=== PATIENT | male | born 1995 | race Caucasian/White ===

== ENCOUNTER 2021-05-18 17:57 | Observation (INO) ==
[2021-05-18 19:55] LABS: Hematocrit (blood only) 42.3 % (42-52); Hemoglobin 15.2 g/dL (14.0-18.0); Mean Corpuscular Hgb Conc 35.9 g/dL (32-36); Mean Corpuscular Volume 80.7 fL (80-100); Mean Platelet Volume 10.8 fL (7.4-10.4); Platelet Count 167 K/uL (130-400); RDW Coefficient of Variation 12.2 % (11.5-14.5); RDW Standard Deviation 35.4 fL (36.4-46.3); Red Blood Count 5.24 M/uL (4.7-6.1); White Blood Count 5.24 K/uL (4.8-10.8)
[2021-05-18 20:21] LABS: Albumin Globulin Ratio 2.3 (0.9-2); BUN Creatinine Ratio 11.6 (10-20); Bilirubin,Total 0.7 mg/dl (0.2-1.0); Calcium 10.2 mg/dl (8.5-10.1); Creatinine Clr Calc Pharmacy 82.7 ml/min; Est GFR (African American) 105.3 ml/min; Est GFR (Non-African American) 90.8 ml/min; Globulin 2.2 gm/dl (2.5-4.0); Potassium 4.2 mmol/L (3.5-5.1); Total Protein 7.2 gm/dl (6.0-8.3)
[2021-05-18 20:31] LABS: Basophils # (manual) 0.14 K/uL (0-0.2); Basophils % (manual) 2.6 %; Eosinophils # (manual) 0.09 K/uL (0-0.5); Eosinophils % (manual) 1.7 %; Lymphocytes # (manual) 1.81 K/uL (1.2-3.4); Lymphocytes % (manual) 34.5 %; Monocytes # (manual) 0.31 K/uL (0.11-0.59); RBC Morphology Unremarkable; Reactive Lymphocytes % (manual) 36.2 %
[2021-05-18] MEDS ORDERED: OPTIRAY 320 100ml IV ONE (20:33)
--- NOTE | 2021-05-18 21:02 | CT Scan Report ---
ABDOMEN AND PELVIS CT WITH IV CONTRAST CT DOSE: 257.70 mGy.cm HISTORY: lower abd pain TECHNIQUE: Multiaxial CT images of the abdomen and pelvis were performed following the use of intrave nous contrast. A dose lowering technique was utilized adhering to the principles of ALARA. COMPARISON STUDY: None. FINDINGS: The lung bases are clear. No fractures within the visualized osseous structures. There is a small left paracentral focal disc protrusion at L5-S1 with moderate disc space narrowing at this lev el. The liver, gallbladder, pancreas, spleen, adrenal glands, and kidneys are unremarkable. No hydron ephrosis. The main portal vein is patent. No retroperitoneal lymphadenopathy. The bladder is unremark able. Mild thickening versus underdistention within the rectum. No evidence for bowel obstruction. Th e proximal appendix is normal in caliber. The mid to distal appendix is seen within the right lower q uadrant on images 288 through 324. This is slightly distended up to 7 mm and is fluid-filled. However , there is no definite periappendiceal fat stranding. IMPRESSION: 1. The mid to distal appendix is fluid-filled and slightly distended up to 7 mm. However, there is no definite periappendiceal fat stranding at this time. An early acute appendicitis is considered less likely but not entirely excluded. Surgical consultation recommended. Given the location of the distal appendix, a follow-up dedicated ultrasound of the appendix may be helpful for further evaluation. If the patient is experiencing right lower quadrant pain then a repeat abdomen and pelvis CT with intra venous and oral contrast can also be performed. 2. Mild thickening of the rectum versus underdistention. This could represent a low-grade proctitis. 3. No hydronephrosis. ACT 112: Negative or not required by law. Electronically signed by: Jus Harvey M.D. 05/18/2021 9:00 PM
[2021-05-18 22:09] LABS: Appearance Urine Clear (Clear); Bilirubin Urine Negative (Negative); Blood Urine Negative (Negative); Color Urine Yellow; Glucose Urine UA Negative (Negative); Ketones Urine Negative (Negative); Leukocyte Esterase Urine Negative (Negative); Nitrite Urine Negative (Negative); Protein Urine Negative (Negative); Urobilinogen Urine Negative (Negative); pH Urine 7.5 (4.5-7.5)
[2021-05-18 22:21] LABS: Specific Gravity Urine > 1.060 (1.000-1.030)
--- NOTE | 2021-05-18 22:27 | History & Physical Report ---
Date of Service May 18, 2021 Assessment & Plan (1) Abdominal pain: Plan: He is afebrile with normal vital signs. He has normal white blood cell count. He had equivocal CT scan with a slightly dilated appendix but no definite inflammation. His exam and presentation is equivocal as well. I do not believe he needs an urgent appendectomy. I am going admit him for observation and since he is thin order an ultrasound of the right lower quadrant for the morning. Also recheck his white blood cell count. We will reexamine him in the morning. If his symptoms persist or worsen his white cell count elevates or his ultrasound shows evidence of appendicitis we would have a low threshold for laparoscopic appendectomy tomorrow. History of Present Illness Primary Care Provider: NO PCP 25-year-old male with a 4-day history of rather vague abdominal pain. It started in his upper abdomen and linear in nature. He does have a history of different GI issues and he felt it was cramping versus acid reflux etc. Yesterday the pain became worse. He had a friend with similar presentation who ended up with appendicitis and therefore he brought himself to the emergency room. He did have a good appetite and ate today. He does have point specific tenderness now in the right lower quadrant. He states that he had a similar pain about 1 year ago Allergies Allergy/AdvReac Type Severity Reaction Status Date / Time No Known Allergies Allergy Unverified 05/18/21 21:40 Home Medications Medication Instructions Recorded Confirmed Type buprenorphine 8 mg-naloxone 2 mg 0.25 tab SUBLINGUAL DAILY 05/18/21 05/18/21 History sublingual tablet bupropion HCl 100 mg tablet,12 hr 100 mg PO BID 05/18/21 05/18/21 History sustained-release citalopram 10 mg tablet 10 mg PO QAM 05/18/21 05/18/21 History Past Med/Surg History Social History Smoking Status: Current every day smoker Tobacco Type: E-cigarettes / Vaping Preferred Language: Slovenian Feels Safe at Home: Yes Review of Systems 2 Review of Systems: All systems reviewed & are unremarkable except as noted in HPI & below Physical Exam Constitutional: WD/WN, vitals as above no acute distress and not ill appearing Eyes: PERRL, conjunctivae normal, anicteric sclerae EOM intact bilaterally ENMT: external ear and nose normal, oropharynx normal Ears: no hearing impairment Neck: trachea midline, no thyromegaly Respiratory: normal respiratory effort; no respiratory distress and does not use accessory muscles Cardiovascular: Rate/Rhythm: regular rate and regular rhythm Gastrointestinal (Abdomen): Soft. Positive right lower quadrant tenderness. Mild guarding. Negative heel strike. Skin: no rashes, warm and dry Psychiatric: Orientation: alert, oriented x 3 and cooperative Results & Data Results & Data ([facility]) Vital Signs (Past 12 Hours) Vital Signs Temp Pulse Resp BP Pulse Ox 05/18/21 22:10 55 L 12 129/84 98 05/18/21 18:15 36.9 C 83 16 132/84 100 PG Care Time/CCT Total # of Minutes Spent Total Time Spent with Patient: Total time spent is greater than 50% in coordination of care (as documented) at patient's floor/unit and/or counseling patient: Coding Level of Care Code INT OBSERVATION CARE 70M LVL 3 Diagnoses Abdominal pain R10.9
--- NOTE | 2021-05-18 22:44 | Emergency Department Note ---
Impression & Plan Abdominal pain, Abnormal abdominal CT scan, Serum calcium elevated ED Provider Note NAME: YUAN RAMON AGE: 25 SEX: M : 1995 ARRIVES VIA: Walk-In INFORMANT: Patient ED PROVIDER(S): Ruddy Mendenhall DO CHIEF COMPLAINT: abdominal pain HPI: Patient is a 25-year-old male who presents the ER for right lower quadrant abdominal pain. Symptoms started about 3 days ago and have been waxing and waning. They reoccurred this morning and have been constant. They are focal in the right lower quadrant. He denies any headache or fevers. No chest pain or shortness of breath. Has some nausea but no vomiting or diarrhea. No dysuria urgency or frequency. He notes he does not feel like he wants to eat. No other S exacerbating or remitting factors. Pain is dull and constant and about a 4 out of 10. ROS: See above HPI for pertinent positives & negatives. A total of 10 systems reviewed and were otherwise negative. PAST MEDICAL HISTORY:See Below PAST SURGICAL HISTORY:See Below FAMILY HISTORY:See Below SOCIAL HISTORY:See Below HOME MEDICATIONS:See Below ALLERGIES:See Below VITALS:See Below PHYSICAL EXAMINATION: GENERAL: Sitting up in bed, alert, well appearing, well nourished, no distress, non-toxic EYE EXAM: normal conjunctiva. OROPHARYNX: no exudate, no erythema, lips, buccal mucosa, and tongue normal and mucous membranes are moist NECK: supple, no nuchal rigidity, no adenopathy, non-tender LUNGS: Clear to auscultation. Normal chest wall mechanics HEART: no murmurs, S1 normal and S2 normal ABDOMEN: abdomen soft, tender palpation right lower quadrant, normo-active bowel sounds, no masses, no rebound or guarding. UPPER EXTREMITIES: upper extremities are grossly normal. LOWER EXTREMITIES: No pitting edema. NEURO EXAM: Normal sensorium, cranial nerves II-XII grossly intact, normal speech, no gross weakness of arms, no gross weakness of legs. MEDICAL DECISION MAKING: Patient is a 25-year-old male who presents ER for right lower quadrant abdominal pain. IV was established blood work was obtained. Labs show no significant leukocytosis or anemia. BMP with slightly elevated calcium. LFTs bilirubin lipase was unremarkable. UA was negative. Covid was ordered and pending. CT abdomen pelvis showed a large appendix but no stranding. Consult general surgery and patient was seen and evaluated and they will admit him for observation overnight to monitor and repeat abdominal checks. Triage Nursing notes reviewed. Limited review of prior medical records performed Vital Signs: reviewed and remarkable for no significant abnormalities Differential diagnosis: Differential diagnoses includes but is not limited to gastritis, peptic ulcer disease, GERD, gallbladder disease, pancreatitis, small bowel obstruction, acute coronary syndrome, pericarditis, ischemic bowel, irritable bowel disease, irritable bowel syndrome, appendicitis, diverticulitis, malignancy, hernia, urinary tract infection, torsion, [/ectopic (if female)], perforation, trauma, infectious. ER treatment provided: See below Diagnostics interpreted by me: ECG: none Cardiac Monitoring: An order was placed for continuous cardiac monitoring. The monitor shows a rate of 57 with sinus rhythm. Laboratory studies: As stated above and show below. Imaging studies: CT abdomen pelvis as described above Consultation(s): Discussed with general surgery who evaluated him bedside admit him for observation Procedures: none Critical Care: None Past Med/Surg History Social History Smoking Status: Current every day smoker Tobacco Type: E-cigarettes / Vaping Preferred Language: Romanian Feels Safe at Home: Yes Allergies Allergies Allergy/AdvReac Type Severity Reaction Status Date / Time No Known Allergies Allergy Unverified 05/18/21 21:40 Home Meds Home Medications Medication Instructions Recorded Confirmed buprenorphine 8 mg-naloxone 2 mg 0.25 tab SUBLINGUAL DAILY 05/18/21 05/18/21 sublingual tablet bupropion HCl 100 mg tablet,12 hr 100 mg PO BID 05/18/21 05/18/21 sustained-release citalopram 10 mg tablet 10 mg PO QAM 05/18/21 05/18/21 Results & Data (ED) Vital Signs Vital Signs - 24 hr 05/18/21 18:15 05/18/21 22:10 Temperature 36.9 C Temperature Source Temporal Artery Scan Pulse Rate 83 55 L Respiratory Rate 16 12 Blood Pressure 132/84 129/84 Blood Pressure Mean 100 99 Pulse Oximetry 100 98 Oxygen Delivery Method Room Air Room Air Sepsis Recent Fever Within 48 Hours No Sepsis New/Unexplained Change in Mental Status N/A Sepsis Action Taken by Nursing No Action Required Laboratory Data Result diagrams: 05/18/21 19:41 05/18/21 19:41 Lab Results 05/18/21 05/18/21 05/18/21 Range/Units 19:41 19:41 Unknown WBC 5.24 (4.8-10.8) K/uL RBC 5.24 (4.7-6.1) M/uL Hgb 15.2 (14.0-18.0) g/dL Hct 42.3 (42-52) % MCV 80.7 (80-100) fL MCH 29.0 (25-34) pg MCHC 35.9 (32-36) g/dL RDW Std Deviation 35.4 L (36.4-46.3) fL RDW Coeff of Monalisa 12.2 (11.5-14.5) % Plt Count 167 (130-400) K/uL MPV 10.8 H (7.4-10.4) fL Neutrophils % (Manual) 19.0 % Lymphocytes % (Manual) 34.5 % Reactive Lymphs % (Man) 36.2 % Monocytes % (Manual) 6.0 % Eosinophils % (Manual) 1.7 % Basophils % (Manual) 2.6 % Neutrophils # (Manual) 1.00 L (1.4-6.5) K/uL Total Absolute Neuts 1.00 L (1.4-6.5) K/uL Lymphocytes # (Manual) 1.81 (1.2-3.4) K/uL Reactive Lymphs # 1.90 K/uL Total Abs Lymphocytes 3.70 H (1.2-3.4) K/uL Monocytes # (Manual) 0.31 (0.11-0.59) K/uL Eosinophils # (Manual) 0.09 (0-0.5) K/uL Basophils # (Manual) 0.14 (0-0.2) K/uL RBC Morphology Unremarkable Sodium 140 (136-145) mmol/L Potassium 4.2 (3.5-5.1) mmol/L Chloride 104 (98-107) mmol/L Carbon Dioxide 26 (21-32) mmol/L Anion Gap 10 (3-11) BUN 13 (6-23) mg/dl Creatinine 1.12 (0.6-1.4) mg/dl Est Cr Clr Drug Dosing 82.7 ml/min Est GFR ( Amer) 105.3 ml/min Est GFR (Non-Af Amer) 90.8 ml/min BUN/Creatinine Ratio 11.6 (10-20) Glucose 92 (70-99(Fasting)) mg/dl Calcium 10.2 H (8.5-10.1) mg/dl Total Bilirubin 0.7 (0.2-1.0) mg/dl AST 15 (13-39) U/L ALT 10 (7-52) U/L Alkaline Phosphatase 54 (34-104) U/L Total Protein 7.2 (6.0-8.3) gm/dl Albumin 5.0 (3.4-5.0) gm/dl Globulin 2.2 L (2.5-4.0) gm/dl Albumin/Globulin Ratio 2.3 H (0.9-2) Lipase 8 L (11-82) U/L Urine Color Yellow Urine Appearance Clear (Clear) Urine pH 7.5 (4.5-7.5) Ur Specific [place] > 1.060 H (1.000-1.030) Urine Protein Negative (Negative) Urine Glucose (UA) Negative (Negative) Urine Ketones Negative (Negative) Urine Blood Negative (Negative) Urine Nitrite Negative (Negative) Urine Bilirubin Negative (Negative) Urine Urobilinogen Negative (Negative) Ur Leukocyte Esterase Negative (Negative) Administered Medications Discontinued Medications Ioversol (Optiray 320 100ml) 89 ml IV ONCE ONE Stop: 05/18/21 20:34 Last Admin: 05/18/21 20:34 Dose: 89 ml Documented by: [id number] Imaging Data Radiologist's Impression: Abdomen/Pelvis CT 05/18/21 19:[address] WITH IV CONTRAST CT DOSE: 257.70 mGy.cm HISTORY: lower abd pain TECHNIQUE: Multiaxial CT images of the abdomen and pelvis were performed following the use of intravenous contrast. A dose lowering technique was utilized adhering to the principles of ALARA. COMPARISON STUDY: None. FINDINGS: The lung bases are clear. No fractures within the visualized osseous structures. There is a small left paracentral focal disc protrusion at L5-S1 with moderate disc space narrowing at this level. The liver, gallbladder, pancreas, spleen, adrenal glands, and kidneys are unremarkable. No hydro nephrosis. The main portal vein is patent. No retroperitoneal lymphadenopathy. The bladder is unremarkable. Mild thickening versus underdistention within the rectum. No evidence for bowel obstruction. The proximal appendix is normal in caliber. The mid to distal appendix is seen within the right lower quadrant on images 288 through 324. This is slightly distended up to 7 mm and is fluid- filled. However, there is no definite periappendiceal fat stranding. IMPRESSION: 1. The mid to distal appendix is fluid-filled and slightly distended up to 7 mm. However, there is no definite periappendiceal fat stranding at this time. An early acute appendicitis is considered less likely but not entirely excluded. Surgical consultation recommended. Given the location of the distal appendix, a follow-up dedicated ultrasound of the appendix may be helpful for further evaluation. If the patient is experiencing right lower quadrant pain then a repeat abdomen and pelvis CT with intravenous and oral contrast can also be performed. 2. Mild thickening of the rectum versus underdistention. This could represent a low-grade proctitis. 3. No hydronephrosis. ACT 112: Negative or not required by law. Electronically signed by: Jus Harvey M.D. 05/18/2021 9:00 PM Discharge Plan Visit Data Chief Complaint: Abdominal Pain Stated Complaint: SEVERE ABDOMIN PAIN- POSSIBLE APPENDICITIS ED Provider: Ruddy Mendenhall Discharge Problem: Abdominal pain, Abnormal abdominal CT scan, Serum calcium elevated Forms Stand Alone Forms: My [facility] [employer] Prescriptions Prescriptions: No Action citalopram 10 mg tablet 10 mg PO QAM RF: 0 bupropion HCl 100 mg tablet sustained-release 12 hr 100 mg PO BID RF: 0 buprenorphine-naloxone 8-2 mg tablet, sublingual 0.25 tab SUBLINGUAL DAILY RF: 0 Referrals Referrals: PCP,NO [Primary Care Provider] -
[2021-05-19] MEDS: BUPRENORPHINE/NALOXONE 2/0.5MG 1 TAB PO SCH ×3 (00:18→20:45)
[2021-05-19] MEDS: LACTATED RINGER'S 1,000 ML IV SCH ×3 (00:19→18:34)
[2021-05-19] MEDS: NICOTINE 14 MG/24 HR PATCH TD SCH ×2 (01:38→10:28)
[2021-05-19 07:15] LABS: Hematocrit (blood only) 40.3 % (42-52); Mean Corpuscular Hemoglobin 28.5 pg (25-34); Mean Corpuscular Hgb Conc 34.7 g/dL (32-36); Mean Corpuscular Volume 82.1 fL (80-100); Mean Platelet Volume 11.6 fL (7.4-10.4); Platelet Count 144 K/uL (130-400); RDW Coefficient of Variation 12.3 % (11.5-14.5); RDW Standard Deviation 36.6 fL (36.4-46.3); Red Blood Count 4.91 M/uL (4.7-6.1)
[2021-05-19 07:38] LABS: Basophils # (auto) 0.02 K/uL (0-0.2); Basophils % (auto) 0.5 %; Eosinophils # (auto) 0.11 K/uL (0-0.5); Eosinophils % (auto) 2.9 %; Lymphocytes # (auto) 2.56 K/uL (1.2-3.4); Lymphocytes % (auto) 67.4 %; Monocytes # (auto) 0.47 K/uL (0.11-0.59); Monocytes % (auto) 12.4 %; Neutrophils # (auto) 0.64 K/uL (1.4-6.5); Neutrophils % (auto) 16.8 %
--- NOTE | 2021-05-19 07:58 | Surgery Progress Note ---
Date of Service May 19, 2021 Assessment & Plan (1) Abdominal pain: Plan: labs noted await U/S Admission and Anticipated Discharge Date Admission Date: May 18, 2021 Subjective little less pain but remains localized to RLQ Physical Exam Gastrointestinal (Abdomen): Inspection/Auscultation: abdomen normal to inspection Percussion/Palpation: + abdomen tender (mild RLQ) and abdomen soft; no guarding Results & Data ([facility]) Vital Signs (Past 12 Hours) Vital Signs Temp Pulse Pulse Resp BP BP Pulse Ox 05/19/21 07:08 36.4 C L 55 L 16 129/74 95 05/18/21 23:44 36.5 C 53 L 16 137/80 99 05/18/21 22:10 55 L 12 129/84 98 PG Care Time/CCT Total # of Minutes Spent Total Time Spent with Patient: Total time spent is greater than 50% in coordination of care (as documented) at patient's floor/unit and/or counseling patient: Coding Level of Care Code 97172 Subseq Hosp Care Lvl 1 Diagnoses Abdominal pain R10.9 Abdominal location: unspecified location (1) Abdominal pain Abdominal location: unspecified location Qualified Code(s): R10.9 - Unspecified abdominal pain
--- NOTE | 2021-05-19 09:15 | Ultrasound Report ---
ULTRASOUND OF THE APPENDIX CLINICAL HISTORY: Right lower quadrant abdominal pain. COMPARISON STUDY: Abdominal CT dated 05/18/2021. FINDINGS: Real-time, grayscale, and color flow sonography of the right lower quadrant was performed t o assess for acute appendicitis. The appendix is identified in the right lower quadrant and measures up to 7 mm diameter. The wall appears mildly thickened and the appendix was noncompressible. The efrain ent is focally tender at this site patchy No surrounding fluid is identified in the right lower quadr ant. No lymphadenopathy was seen. IMPRESSION: The appendix is abnormal in appearance as detailed above. The patient was focally tender at this site, and when correlated with yesterday's CT findings are consistent with mild acute appendi citis. ACT 112: Negative or not required by law. Electronically signed by: Oscar Alas M.D. 05/19/2021 9:12 AM
--- NOTE | 2021-05-19 10:08 | Communication Note ---
Date of Service: May 19, 2021 -Patient underwent Appendix US--> results revealed "appendix measuring up to 7 mm diameter. The wall appears mildly thickened and the appendix was noncomp ressible. Pt with focal tenderness at sight." -Pt remains tender in the RLQ, nauseated, and in pain. Based on imaging findings and physical exam we will proceed with taking patient for laparoscopic a ppendectomy today with Dr. Staley. Please keep NPO with IVF.
[2021-05-19] MEDS ORDERED: ONDANSETRON INJ 2 MG/ML 2 ML VIAL IV PRN ×2 (10:10→12:46)
[2021-05-19] MEDS: buPROPion SR 100 MG TABCR PO SCH ×3 (10:24→20:24)
[2021-05-19] MEDS: CITALOPRAM 20 MG TAB PO SCH ×2 (10:24→11:42)
[2021-05-19] MEDS ORDERED: ceFAZolin 2,000 MG/15 ML IV PUSH IV ONE (12:25)
[2021-05-19] MEDS ORDERED: ceFAZolin 2000MG 2,000 MG/15 ML SYR IV ONE (12:26)
--- NOTE | 2021-05-19 12:33 | History & Physical Bridge Note ---
Date of Service May 19, 2021 History & Physical Bridge Note I have examined the patient, reviewed the History & Physical and in the interval since the performance of the History & Physical I have noted the following changes of clinical significance: pt seen. still having localized RLQ pain. US c/w acute appendicitis. discussed options and risks ( bleeding/infection/blood clots/dvt/pe/mi/cva/injury to another organ etc....) questions answered. will proceed with lap appy. pt agreeable.
[2021-05-19] MEDS ORDERED: BUPIVACAINE 0.5 % 5 MG/1 ML MPF 30ML VIAL ONE (12:37)
[2021-05-19] MEDS ORDERED: LIDOCAINE 2% 2 ML VIAL/AMP(20MG/ML) INFIL ONE (12:45)
[2021-05-19] MEDS ORDERED: ROCURONIUM BROMIDE 10 MG/ML 5 ML VIAL IV ONE (12:45)
[2021-05-19] MEDS ORDERED: PROPOFOL IV EMULSION 10 MG/ML 20 ML VIAL IV ONE (12:45)
[2021-05-19] MEDS ORDERED: ONDANSETRON INJ 2 MG/ML 2 ML VIAL ONE (12:45)
[2021-05-19] MEDS ORDERED: MIDAZOLAM HCL 1 MG/ML 2ML VIAL ONE (12:45)
--- NOTE | 2021-05-19 12:45 | Anesthesiology Consultation ---
Date of Service May 19, 2021 Assessment & Plan Chart Review Chart Review: Acceptable Risk for Surgery Consults Requested none History Surgery Operation Date: 05/19/21 13:10 Proposed Procedures p Laparoscopic Appendectomy - Jayant Staley DO Height/Weight Height: 5 ft 6 in Weight: 57.98 kg Allergies Allergy/AdvReac Type Severity Reaction Status Date / Time No Known Allergies Allergy Unverified 05/18/21 21:40 Medications Home Medications Medication Instructions Recorded Confirmed Last Taken buprenorphine 8 mg-naloxone 2 mg 0.25 tab SUBLINGUAL DAILY 05/18/21 05/18/21 05/18/21 sublingual tablet bupropion HCl 100 mg tablet,12 hr 100 mg PO BID 05/18/21 05/18/21 05/18/21 sustained-release am citalopram 10 mg tablet 10 mg PO QAM 05/18/21 05/18/21 05/18/21 Active Medications Generic Name Dose Route Start Last Admin Trade Name Kate PRN Reason Stop Dose Admin Buprenorphine/Naloxone 1 tab 05/18/21 23:44 05/19/21 11:40 Buprenorphine/Naloxone 2/0.5mg 1 Tab PO 06/17/21 23:43 Not Given BID LETICIA Bupropion HCl 100 mg 05/19/21 09:00 05/19/21 11:40 Bupropion Sr 100 Mg Tabcr PO 06/18/21 08:59 Not Given BID LETICIA Citalopram Hydrobromide 10 mg 05/19/21 09:00 05/19/21 11:42 Citalopram 20 Mg Tab PO 06/18/21 08:59 Not Given QAM LETICIA Lactated Ringer's 1,000 mls @ 100 mls/hr 05/18/21 23:44 05/19/21 10:26 Lr IV 06/17/21 23:43 100 mls/hr .Q10H LETICIA Administration Miscellaneous 1 ea 05/19/21 08:59 05/19/21 10:26 Remove Nicoderm Patch N/A 06/18/21 08:58 1 ea [id number] LETICIA Administration Nicotine 14 mg 05/19/21 00:35 05/19/21 10:28 Nicotine 14 Mg/24 Hr Patch TD 06/18/21 00:34 Not Given QAM LETICIA Ondansetron HCl 4 mg 05/19/21 10:10 05/19/21 10:26 Ondansetron Inj 2 Mg/Ml 2 Ml Vial IV 06/18/21 10:09 4 mg Q6H PRN Administration Nausea And Vomiting NPO Date Last Intake of Fluids: 05/18/21 Time Last Intake of Fluids: 17:00 Date Last Intake of Solids: 05/18/21 Time Last Intake of Solids: 14:00 Social History Smoking Status: Current every day smoker tobacco type: e-cigarettes Hx Alcohol Use: No Hx Substance Use: Yes substance use type: marijuana Physical Exam Vital Signs Last Vital Signs Temp 37.1 C 05/19/21 12:00 Pulse 65 05/19/21 12:00 Resp 20 05/19/21 12:00 BP 122/76 05/19/21 12:00 Pulse Ox 97 05/19/21 12:00 Testing Laboratory Results 05/19/21 06:36 05/18/21 19:41 Urine Color Yellow 05/18/21 Unknown Urine Appearance Clear (Clear) 05/18/21 Unknown Urine pH 7.5 (4.5-7.5) 05/18/21 Unknown Ur Specific [place] > 1.060 (1.000-1.030) H 05/18/21 Unknown Urine Protein Negative (Negative) 05/18/21 Unknown Urine Glucose (UA) Negative (Negative) 05/18/21 Unknown Urine Ketones Negative (Negative) 05/18/21 Unknown Urine Nitrite Negative (Negative) 05/18/21 Unknown Ur Leukocyte Esterase Negative (Negative) 05/18/21 Unknown
[2021-05-19] MEDS ORDERED: fentaNYL citrate 100 MCG/2 ML VIAL ONE ×2 (12:46→13:12)
[2021-05-19] MEDS ORDERED: PROMETHAZINE HCL 12.5 MG in SODIUM CHLORIDE 0.9% 50 ML IV PRN (12:46)
[2021-05-19] MEDS ORDERED: ePHEDrine sulfate 50 MG/ML AMP IV PRN (12:46)
[2021-05-19] MEDS ORDERED: ATROPINE SULFATE 0.1 MG/ML 10ML SYR IV PRN (12:46)
[2021-05-19] MEDS ORDERED: BUPIVACAINE LIPOSOME 1.3% 266 MG/20 ML VIAL ONE (13:03)
[2021-05-19] MEDS ORDERED: DEXAMETHASONE SOD INJ 4 MG/ML VIAL ONE (13:11)
[2021-05-19] MEDS: EPINEPHrine INJ 1 MG/ML AMP ONE ×2 (13:23→13:26)
[2021-05-19] MEDS ORDERED: KETOROLAC 30 MG/ML VIAL ONE (13:25)
--- NOTE | 2021-05-19 13:35 | Operative Report ---
PG Post Operative Report Pre & Post Diagnosis Operation Date: 05/19/21 13:10 Pre-Op Diagnosis: Appendicitis Post-Op Diagnosis: Appendicitis I identified the patient and participated in the time-out.: Yes Procedure Operation Date: 05/19/21 13:10 Actual Procedures p Laparoscopic Appendectomy(Not Applicable) - Jayant Staley DO Surgeon Jayant Staley DO Hospital Security Officer carlos Dia Estimated Blood Loss 5 Findings Consistent with Post-Op Diagnosis Specimens appendix Description of Procedure After informed consent was obtained the patient was taken to the operating room and placed in supine position. After successful intubation a Pemberton catheter was placed and the left arm was tucked. A Pemberton catheter was inserted sterilely. I began by making a periumbilical incision with an 11 blade scalpel and carried this down through the soft tissue using electrocautery. The anterior rectus fascia was opened using electrocautery and 2 #0 Vicryl stay sutures were placed. The peritoneum was elevated using hemostats and incised under direct vision using a Metzenbaum scissor. A finger sweep was performed. A 12 mm Martin tro car was placed and the abdomen was insufflated to 18 mmHg. A laparoscope was inserted and the abdomen was examined in 360. A suprapubic 5 mm port and a left lower quadrant 12 mm port were placed under direct vision. The patient was air planed to the left as well as placed in a slight Trendelenburg position. We began by looking in the right lower quadrant. We were able to readily identify the appendix and it was grossly inflamed. It had not perforated. There is a small amount of purulent fluid in the right lower quadrant and the pelvis. We immediately irrigated and suctioned this out. I was able to use primarily blunt dissection to pull the appendix away from the right lower quadrant sidewall. I was then able to use a JOANN brown cartridge stapler to transect both the mesentery of the appendix as well as the appendix itself at its base with the cecum. It was then placed into an Endo Catch bag and removed from the camera port site. We thoroughly irrigated the right lower quadrant as well as the pelvis. There was adequate hemostasis. I ran the small bowel backwards from the terminal ileum for about 6 feet all of which was normal. All the peritoneal surfaces were normal. Small/ large bowel, liver, stomach etc. all appeared grossly normal. We did a final irrigation and then removed all the trochars and desufflated the abdomen. The fascia of the camera port as well as the left lower quadrant were closed using 0 Vicryl in [id number] fashion. Wounds were all irrigated and closed using 4-0 Monocryl. Marcaine was injected around them for postoperative analgesia and skin glue used as a dressing. The patient was awakened extubated and transferred to recovery in stable condition. My physician's assistant director of security was present through the entire case. She assisted with prepping the patient and helped with exposure for port placement, helped run the camera and helped with fascial/wound closure at the end of the procedure as well as dressing placement. I attest to the content of the Intraoperative Record and any orders documented therein. Any exceptions are noted below. I attest to the content of the Intraoperative Record and any orders documented therein. Any exceptions are noted below.
[2021-05-19] MEDS: fentaNYL citrate 100 MCG/2 ML VIAL IV PRN ×2 (13:47→14:03)
[2021-05-19] MEDS ORDERED: PROMETHAZINE HCL INJ 25 MG/ML 1 ML VIAL ONE (14:05)
[2021-05-19] MEDS ORDERED: SODIUM CHLORIDE 0.9% 50 ML BAG ONE (14:05)
[2021-05-19] MEDS: HYDROmorphone INJ 2 MG/ML SYR/VIAL IV PRN ×4 (14:15→14:30)
[2021-05-19] MEDS ORDERED: ACETAMINOPHEN 1000 MG/100 ML IV IV SCH (14:48)
--- NOTE | 2021-05-19 14:49 | Anesthesiology Progress Note ---
Date of Service May 19, 2021 Anesthesia Post Procedure Vital Signs Vital Signs: Temp Pulse Pulse Pulse Resp BP BP 05/19/21 14:40 72 14 127/81 05/19/21 14:25 36.9 C 64 16 127/64 05/19/21 14:15 60 20 124/67 05/19/21 14:05 66 15 146/77 H 05/19/21 13:58 85 05/19/21 13:55 81 20 143/73 H 05/19/21 13:45 36.7 C 85 16 135/72 05/19/21 12:00 37.1 C 65 20 122/76 05/19/21 11:28 36.8 C 64 18 126/69 05/19/21 07:08 36.4 C L 55 L 16 129/74 05/18/21 23:44 36.5 C 53 L 16 137/80 05/18/21 22:10 55 L 12 129/84 05/18/21 18:15 36.9 C 83 16 132/84 Pulse Ox 05/19/21 14:40 100 05/19/21 14:25 100 05/19/21 14:15 100 05/19/21 14:05 100 05/19/21 13:58 05/19/21 13:55 100 05/19/21 13:45 100 05/19/21 12:00 97 05/19/21 11:28 97 05/19/21 07:08 95 05/18/21 23:44 99 05/18/21 22:10 98 05/18/21 18:15 100 Pain Intensity Abdomen: Pain Intensity: 10 Transfer of Care Handoff Completed per policy Notes Mental Status: alert / awake / arousable and participated in evaluation Patient Amnestic to Procedure: Yes Nausea / Vomiting: adequately controlled Pain: adequately controlled Airway Patency, RR, SpO2: stable & adequate BP & HR: stable & adequate Hydration State: stable & adequate Anesthetic Complications: no major complications apparent
[2021-05-19] MEDS: ACETAMINOPHEN 1,000 MG/100 ML VIAL IV SCH ×2 (16:04→23:22)
[2021-05-19] MEDS ORDERED: IBUPROFEN 600 MG TAB PO PRN ×2 (16:18→19:00)
[2021-05-20] MEDS: LACTATED RINGER'S 1,000 ML IV SCH (04:09)
--- NOTE | 2021-05-20 08:03 | Surgery Progress Note ---
Date of Service May 20, 2021 Assessment & Plan (1) Appendicitis: Plan: POD#1 laparoscopic appendectomy Patient feeling much better than yesterday Tolerating a diet Pain controlled on current regimen, recommended patient obtain Tylenol/Ibuprofen OTC for home Okay for discharge F/u in clinic with Dr. Staley in 1-2 weeks. Dispo instructions reviewed Admission and Anticipated Discharge Date Admission Date: May 18, 2021 Subjective Patient feeling much better than yesterday. Tolerating a diet. No nausea/vomiting. Pain controlled. Has been out of bed ambulating and is voiding. Physical Exam Physical Exam: awake/alert Gastrointestinal (Abdomen): Inspection/Auscultation: + abdominal surgical incision (c/d/i with dermabond); abdomen not distended Percussion/Palpation: + abdomen tender (some expected leander) and abdomen soft Results & Data ([facility]) Vital Signs (Past 12 Hours) Vital Signs Temp Pulse Resp BP Pulse Ox 05/20/21 07:29 36.6 C 74 18 113/67 97 05/20/21 03:37 36.7 C 71 18 122/69 96 05/19/21 23:23 36.8 C 99 H 18 107/56 L 97 05/19/21 20:05 36.6 C 68 18 133/69 100 PG Care Time/CCT Total # of Minutes Spent Total Time Spent with Patient: Total time spent is greater than 50% in coordination of care (as documented) at patient's floor/unit and/or counseling patient: Coding Level of Care Code None Diagnoses Appendicitis K37
[2021-05-20] MEDS ORDERED: SIMETHICONE 80 MG CHEW PO ONE (08:40)
[2021-05-20] MEDS: ACETAMINOPHEN 1,000 MG/100 ML VIAL IV SCH (08:45)
[2021-05-20] MEDS: BUPRENORPHINE/NALOXONE 2/0.5MG 1 TAB PO SCH (10:12)
[2021-05-20] MEDS: CITALOPRAM 20 MG TAB PO SCH (10:12)
[2021-05-20] MEDS: buPROPion SR 100 MG TABCR PO SCH (10:13)
[2021-05-20] MEDS: NICOTINE 14 MG/24 HR PATCH TD SCH (10:14)
--- NOTE | 2021-05-21 05:56 | Electrocardiogram Report ---
Test Reason : Blood Pressure : / mmHG Vent. Rate : 085 BPM Atrial Rate : 085 BPM P-R Int : 128 ms QRS Dur : 102 ms QT Int : 406 ms P-R-T Axes : 054 082 037 degrees QTc Int : 483 ms Normal sinus rhythm with sinus arrhythmia Prolonged QT Abnormal ECG No previous ECGs available Confirmed by Rashaad Yanez ([id number]) on 05/21/2021 5:55:28 AM Referred By: REFERRED SELF Confirmed By:Rashaad Yanez
== END 2021-05-20 16:17 | disposition home or self-care (01) ==
LOC: ED 17:57 → 3W 17:57